=== PATIENT | male | born 1985 | race African-American/Black ===

== ENCOUNTER 2024-11-27 20:29 | Emergency (ER) | payer MEDICARE, MEDICAID ==
[~2024-11-27] VITALS: Ht 182.9 cm; Wt 82.0 kg
[2024-11-27] MEDS ORDERED: BACITRACIN ZINC OINT UDPKT TOP ONE (21:30)
[2024-11-27] MEDS: KETOROLAC 30MG/ML VIAL IV STA (21:39)
[2024-11-27] MEDS: ONDANSETRON HCL 4MG/2ML INJ IV STA (21:39)
[2024-11-27] MEDS: MORPHINE SULFATE 4 MG/ML INJ (FOR IV/IM USE) IV STA (21:39)
[2024-11-27] MEDS: ACETAMINOPHEN 325MG TABLET PO STA (21:39)
[2024-11-27] MEDS: TETANUS, DIPHTHERIA, PERTUSSIS VAC/PF 0.5ML (>10YR OLD) IM ONE (21:42)
[2024-11-27] MEDS: CEFAZOLIN 1000MG PREMIX 50 ML IV ONE (21:53)
[2024-11-27 22:32] LABS: CHLORIDE 98 mEq/L (98-107); POTASSIUM 4.3 mEq/L (3.5-5.1); SODIUM 139 mEq/L (136-145)
[2024-11-27 22:33] LABS: CALCIUM 8.5 mg/dL (8.7-10.4); CARBON DIOXIDE 28 mEq/L (21-32)
[2024-11-27 22:38] LABS: GLUCOSE 103 mg/dL (70-105); UREA NITROGEN BLOOD 36 mg/dL (9-23)
[2024-11-27 22:40] LABS: ALANINE AMINOTRANSFERASE 15 IU/L (10-49); ALBUMIN 4.1 g/dL (3.2-4.8); ASPARTATE AMINOTRANSFERASE 27 IU/L (<34); BILIRUBIN DIRECT 0.1 mg/dL (<=3.0); BILIRUBIN TOTAL 0.3 mg/dL (0.1-1.0); PROTEIN TOTAL 8.2 g/dL (6.0-8.3)
[2024-11-27 22:55] LABS: EOSINOPHILS % 4.1 % (0.0-5.0); HEMATOCRIT. 25.5 % (42.0-52.0); HEMOGLOBIN. 8.6 g/dL (14.0-18.0); LYMPHOCYTES % 14.4 % (20.0-50.0); MEAN CORPUSCULAR HGB CONC 33.8 g/dL (31.0-37.0); MEAN PLATELET VOLUME 7.1 fl (7.4-10.4); MONOCYTES % 10.7 % (2.0-8.0); NEUTROPHILS % 69.8 % (40.0-76.0); PLATELET 268 x1000/uL (130-400); RED BLOOD CELL COUNT 2.97 mill/uL (4.7-6.1); RED CELL DISTRIBUTION WIDTH 14.6 % (11.6-14.6); WHITE BLOOD COUNT 7.3 x1000/uL (4.5-11.0)
[2024-11-27 23:31] VITALS: O2SAT 94
[2024-11-27] MEDS: MIDAZOLAM HCL 2 MG/2 ML VIAL IV ONE (23:31)
[2024-11-27] MEDS: LIDOCAINE HCL/EPINEPHRINE 1%-EPI 1:100,000 20ML VIAL INFIL ONE (23:32)
[2024-11-27] MEDS ORDERED: LIDOCAINE HCL 1% 20ML VIAL INFIL ONE (23:45)
[2024-11-27] MEDS: LIDOCAINE HCL 1% 20ML VIAL INFIL NR (23:48)
[2024-11-28] MEDS ORDERED: CEPH500T MT (00:51)
[2024-11-28 01:27] VITALS: BP 128/74; PULSE 87; RESP 11; TEMP 37; O2SAT 98
== END 2024-11-28 01:28 | disposition home or self-care (01) ==
LOC: ER 20:29
DX: S52.591B Other fractures of lower end of right radius, initial encounter for open fracture type I or II (principal); S62.291B Other fracture of first metacarpal bone, right hand, initial encounter for open fracture; S00.81XA Abrasion of other part of head, initial encounter; I12.0 Hypertensive chronic kidney disease with stage 5 chronic kidney disease or end stage renal disease; R51.9 Headache, unspecified; Z99.2 Dependence on renal dialysis
CPT/HCPCS: 25605; 80076; 80048; 85025; 36415; 71045; 73110 ×2; 73120; 70450; 72125; 90715; 90471; 96365; 96375; 99285; J1885; J0690; J3490; J2250; J2405; J2270; 26605; J2004